=== PATIENT | male | born 1960 | race Caucasian/White ===

== ENCOUNTER 2019-02-09 01:18 | Inpatient (IN) | payer MEDICAID ==
[2019-02-09] VITALS (24 sets, daily range): BP systolic 74–166; BP diastolic 47–104; Ht 182.9 cm; Wt 127.0 kg
[~2019-02-09] VITALS: Ht 182.9 cm; Wt 127.0 kg
--- NOTE | ~2019-02-09 | HEMODYNAMI ---
PATIENT:AIME GALLOWAY MEDICAL RECORD: [id number] : 62 LOCATION:[facility] BaldomeroT01- ADMISSION DATE: 02/09/19 Generatedon:02/09/20193:08 Patient name: AIME AGLLOWAY Patient #: [id number] SSN: : 1960 Date of study: 02/09/2019 Page: Of Hemodynamic Procedure Report Patient Data Patient Demographics Procedure consent was obtained First Name: AIME Gender: Male Last Name: NILESH : 1960 Middle Initial: RAY Age: 58 year(s) Patient #: [id number] Race: Unknown Additional ID: [id number] Contact details Address: [address] [place] [address] State: [place] City: [facility] Zip code: [address] Admission Admission Data Admission Date: 02/09/2019 Admission Time: 1:35 Room #: D.T01 Weight (lbs.): 291.01 Weight (kg.): 132 Procedure Procedure Types Cath Procedure Diagnostic Procedure LHC LH w/Coronaries PCI Procedure AMI/SVG/FILTER FILLER PTCA or Stent AMI-BMS/MARIA A Initial Procedure Description Procedure Date Procedure Date: 02/09/2019 Procedure Start Time: 2:23 Procedure End Time: 3:08 Procedure Staff Name Function Drew Ferguson MD Performing Physician Antwan Ma RT Monitor Saturnino Rios RN Nurse Gene Clement RT Scrub Procedure Data Cath Procedure Fluoroscopy Diagnostic fluoroscopy Total fluoroscopy Time: 9.8 time: 9.8 min min Diagnostic fluoroscopy Total fluoroscopy dose: dose: 2285 mGy 2285 mGy Contrast Material Contrast Material Type Amount (ml) Isovue 300 162 Entry Location Entry Primary Successful Side Size Upsize Upsize Entry Closure Succes sful Closure Location (Fr) 1 (Fr) 2 (Fr) Remarks Device Remarks Femoral Right 6 Fr Exoseal artery Short Estimated blood loss: 10 ml Diagnostic catheters Device Type Used For End Catheter Placement DIAGNOSTIC 3DRC 5Fr Procedure catheter ([id number]) DIAGNOSTIC Pigtail 5Fr Procedure catheter ([id number]) Procedure Complications No complications Procedure Medications Medication Administration Route Dosage 0.9% NaCl I.V. 100 ml/hr Oxygen NC 2 l/min Heparin Flush Bag added to field 2 bags (1000units/500ml NS) Lidocaine 2% 20 Versed I.V. 2 mg Fentanyl I.V. 100 mcg Integrilin (Bolus I.V. 11.3 ml 2mg/ml) Integrilin Drip I.V. drip 20 ml/hr (75mg/100ml) Integrilin (Bolus I.C. 11.3 ml 2mg/ml) Fentanyl I.V. 100 mcg Nitroglycerin IC/IA I.C. 200 mcg Cardene I.C. 300 mcg Integrilin (Bolus wasted 8.7 ml 2mg/ml) Integrilin (Bolus wasted 8.7 ml 2mg/ml) Hemodynamics Rest Heart Rate: 81 (bpm) Pressure Samples Time Site Value (mmHg) Purpose Heart Use Rate(bpm) 2:28 AO 132/83(106) Snapshot 80 2:32 AO 151/101(125) Snapshot 92 2:40 AO 138/93(114) Snapshot 92 2:44 AO 138/87(107) Snapshot 92 2:56 LV 117/18,42 Snapshot 109 2:57 AO 134/77(106) Pullback 96 2:57 LV 117/18,29 Pullback 96 Gradients Valve Time Site 1 Site 2 Mean SEP/DFP Peak To Heart Use (mmHg) (sec/min) Peak Rate (mmHg) (bpm) Aortic 2:57 LV AO 0 2 0 96 117/18,29 134/77(106) Calculations Valve P-P Mean Valve Index Valve Source Name Gradient Area Flow (cm2) Aortic 0 0 0 0 Snapshots Pre Cath Intra NCS Post Cath Vital Signs Time Heart Resp SPO2 etCO2 NIBP (mmHg) Rhythm Pain Status Sedation Rate (ipm) (%) (mmHg) Level (bpm) 2:19:15 87 15 100 0 144/92(117) NSR 10 (11) , 10(A) Unimaginable unspeakable 2:23:29 79 17 98 0 135/85(113) NSR 10 (11) , 10(A) Unimaginable unspeakable 2:27:38 89 13 91 0 155/93(108) NSR 10 (11) , 10(A) Unimaginable unspeakable 2:31:55 77 13 94 0 153/95(128) NSR 10 (11) , 10(A) Unimaginable unspeakable 2:36:13 64 12 99 0 147/93(137) NSR 10 (11) , 10(A) Unimaginable unspeakable 2:40:27 91 13 100 0 137/94(124) NSR 10 (11) , 10(A) Unimaginable unspeakable 2:44:39 94 13 99 0 156/97(129) NSR 10 (11) , 10(A) Unimaginable unspeakable 2:49:01 100 16 99 0 144/67(119) NSR 10 (11) , 10(A) Unimaginable unspeakable 2:53:11 90 11 99 0 134/91(105) NSR 10 (11) , 10(A) Unimaginable unspeakable 2:57:57 99 13 98 0 129/98(126) NSR 10 (11) , 10(A) Unimaginable unspeakable 3:02:05 95 12 91 0 145/95(107) NSR 10 (11) , 10(A) Unimaginable unspeakable 3:06:19 97 14 92 0 161/100(137) NSR 0 (11) , No 10(A) pain Medications Time Medication Route Dose Verified Delivered Reason Notes Eff ectiveness by by 2:18:37 0.9% NaCl I.V. 100 Saturnino Saturnino Per ml/hr Gabriel Rios physician RN RN 2:18:46 Oxygen NC 2 Saturnino Saturnino for low 02 l/min Gabriel Rios sats RN RN 2:18:59 Heparin Flush added 2 Saturnino Saturnino used for Bag to bags Gabriel Rios procedure (1000units/500ml field RN RN NS) 2:19:32 Lidocaine 2% 20ml Saturnino Saturnino for local vial Gabriel Rios anesthetic RN RN 2:22:01 Versed I.V. 2 mg Saturnino Saturnino for sedation Gabriel Rios RN RN 2:22:10 Fentanyl I.V. 100 Saturnino Saturnino for sedation mcg Gabriel Rios RN RN 2:25:07 Integrilin I.V. 11.3 Saturnino Saturnino for (Bolus 2mg/ml) ml Gabriel Rios antiplatelet RN RN therapy 2:26:48 Integrilin wasted 8.7 Saturnino Saturnino to sharp's (Bolus 2mg/ml) ml Gabriel Rios RN RN 2:32:56 Integrilin Drip I.V. 20 Saturnino Saturnino for (75mg/100ml) drip ml/hr Gabriel Rios antiplatelet RN RN therapy 2:36:46 Integrilin I.C. 11.3 Saturnino Drew for (Bolus 2mg/ml) ml Gabriel Ferguson antiplatelet LUCIA MD therapy 2:48:22 Fentanyl I.V. 100 Saturnino Saturnino for sedation mcg Gabriel Rios RN RN 2:50:16 Cardene I.C. 300 Saturnino Drew for mcg [facility] Sifuentes vasodilation RN 2:51:55 Nitroglycerin I.C. 200 Saturnino Drew for IC/IA mcg Gabriel Ferguson vasodilation LUCIA FU 3:03:41 Integrilin wasted 8.7 Saturnino Saturnino to sharp's (Bolus 2mg/ml) ml Gabriel Rios RN spinner cap frame Log Time Note 1:52:09 Patient Weight : 291.01 lbs 1:53:40 Antwan EARL(R) sent for patient. Start room use. 1:53:42 Time tracking: Call back (After hours or weekends) 1:53:47 Plan of Care:Hemodynamics will remain stable., Cardiac rhythm will remain stable., Comfort level will be maintained., Respiratory function will remain adequate., Patient/ family verbilizes understanding of procedure., Procedure tolerated without complication., Recovers from procedure without complications.. 2:12:01 Patient arrives emergently. 2:12:02 Patient received from ED to CCL 1 Alert and oriented. Tansferred to table in Supine position. 2:12:03 Warm blankets applied, and juma hugger turned on for patient comfort. 2:12:04 Correct patient and procedure confirmed by team. 2:12:05 Signed procedure consent form obtained from patient. 2:12:06 ECG and BP/O2 sat monitors applied to patient. 2:12:07 Pre-procedure instructions explained to patient. 2:12:07 Pre-op teaching completed and patient verbalized understanding. 2:12:11 Family in waiting room. 2:18:12 Vital chart was started 2:18:13 Baseline sample Acquired. 2:18:16 Rhythm: w/ ST elevation 2:18:18 Full Disclosure recording started 2:18:37 0.9% NaCl 100 ml/hr I.V. was administered by Saturnino Rios RN; Per physician; 2:18:43 H&P Date Dictated: 02/09/2019 Emergent; H&P N/A. 2:18:46 Oxygen 2 l/min NC was administered by Saturnino Rios RN; for low 02 sats; 2:18:48 Patient NPO since Dinner. 2:18:49 Is the patient allergic to Iodine/contrast media? No. 2:18:51 Is patient on blood thinner?Yes 2:18:53 ACC The patient was administered the following blood thiners within the last 24 hours: ACCPlavix 2:18:59 Heparin Flush Bag (1000units/500ml NS) 2 bags added to field was administered by Saturnino Rios RN; used for procedure; 2:19:00 LOADED IN ER 2:19:02 Patient diabetic? Yes. 2:19:24 If diabetic: On Metformin? Yes 2:19:31 If on Metformin: Last Dose? 02/08/2019 2:19:32 Lidocaine 2% 20ml vial was administered by Saturnino Rios RN; for local anesthetic; 2:19:32 Previous problem with sedation/anesthesia? No ? 2:19:33 Snore? Yes 2:19:34 Sleep apnea? Yes 2:19:35 Deviated septum? No 2:19:36 Opens mouth fully? Yes 2:19:36 Sticks out tongue? Yes 2:19:42 Airway obstruction? Yes COPD 2:19:45 Dentures? No ? 2:19:47 Pre procedure: right dorsailis pedis pulse 1+ Palpable, but thready & weak; easily obliterated 2:19:49 Patient pain scale 0/10 ?. 2:19:56 IV patent on arrival in left hand with 0.9% NaCl at [facility]. 2:19:58 Lab results completed and on chart. 2:20:02 Right groin area was prepped with chlora-prep and draped in sterile fashion 2:20:03 Alarms reviewed by R. N. 2:20:03 Sharps counted by scrub and verified by R.N. 2:20:07 Use device set Femoral Dx 2:20:10 Use device set PROSPER PCI 2:20:23 --------ALL STOP TIME OUT------ 2:20:23 Final Timeout: patient, procedure, and site verified with staff and physician. All members of the team are in agreement. 2:20:25 Right groin site verified by team. 2:20:29 Maximum allowable Isovue 300 dose 300ml. Physician notified. (300ml for normal creatinines. For patients with creatinine of 1.7 or higher multiply weight(kg) x 5 divided by creatinine.) 2:20:34 Fire Safety Assessment: A--An alcohol-based skin anteseptic being used preoperatively., C--Open oxygen or nitrous oxide is being used., D--An ESU, laser, or fiber-optic light is being used. 2:20:37 Physical assessment completed. ASA score P 3 - A patient with severe systemic disease as per Drew Ferguson MD. 2:20:40 Sedation plan: IV Moderate Sedation Medication:Versed, Fentanyl 2:22:01 Versed 2 mg I.V. was administered by Saturnino Rios RN; for sedation; 2:22:10 Fentanyl 100 mcg I.V. was administered by Saturnino Rios RN; for sedation; 2:23:22 Procedure started. 2:23:24 Local anesthetic to right femoral artery with Lidocaine 2% by Drew Ferguson MD.INITIAL ACCESS ONLY 2:23:39 A 6 Fr Short sheath was inserted into the Right Femoral artery 2:23:46 6 Fr JL 4 guide catheter was inserted over the wire 2:23:54 Tegaderm 4 x 4 (1626W) opened to sterile field. 2:23:55 ACIST Manifold (23708) opened to sterile field. 2:23:58 ACIST Hand Control (62187) opened to sterile field. 2:23:59 ACIST Syringe (16622) opened to sterile field. 2:24:00 Bag Decanter () opened to sterile field. 2:24:00 Medline Cath Pack ([id number]) opened to sterile field. 2:24:01 DIAGNOSTIC WIRE .035 260cm J wire (755195) opened to sterile field. 2:24:04 INFLATOR Merit ScoutmobCompak (RK6895) opened to sterile field. 2:24:05 WHISPER 300cm guide wire ([id number]) opened to sterile field. 2:24:07 SHEATH 6FR [place] (XUB536) opened to sterile field. 2:24:23 GUIDE 6FR JL 4.0 catheter (BO0CQ71) opened to sterile field. 2:24:33 LCA angiography performed. 2:24:54 Whisper wire advanced. 2:25:07 Integrilin (Bolus 2mg/ml) 11.3 ml I.V. was administered by Saturnino Rios RN; for antiplatelet therapy; 2:26:48 Integrilin (Bolus 2mg/ml) 8.7 ml wasted was administered by Saturnino Rios RN; to sharp's; 2:27:02 Wire advanced across lesion. 2:27:27 Inflate balloon Inflation number: 1 A EMERGE OTW 3.0 x 15 balloon ([id number]) was prepped and advanced across the Mid LAD, then inflated to 14 MAU for 0:30 (min:sec). 2:28:23 Inflation number: 2 The EMERGE OTW 3.0 x 15 balloon ([id number]) was reinflated across the Mid LAD, to 6 MAU for 0:10 (min:sec). 2:29:02 Multiple inflations made at 6 Atms. 2:29:36 Inflation number: 3 The EMERGE OTW 3.0 x 15 balloon ([id number]) was reinflated across the Mid LAD, to 8 MAU for 0:10 (min:sec). 2:29:40 Multiple inflations made at 8 Atms. 2:32:51 Balloon removed over the wire. 2:32:56 Integrilin Drip (75mg/100ml) 20 ml/hr I.V. drip was administered by Saturnino Rios RN; for antiplatelet therapy; 2:33:06 Place stent Inflation Number: 4 A INTEGRITY OTW 3.5 X 12 stent ([id number]) was prepped and advanced across the Mid LAD. The stent was deployed at 14 MAU for 0:30 (min:sec). 2:36:13 Stent catheter was removed intact over wire. 2:36:14 Wire removed. 2:36:34 WHISPER 300cm guide wire ([id number]) opened to sterile field. 2:36:46 Integrilin (Bolus 2mg/ml) 11.3 ml I.C. was administered by Drew Ferguson MD; for antiplatelet therapy; 2:36:50 Wire removed, damaged. 2:37:01 New Whisper wire advanced. 2:40:02 Wire advanced across lesion. 2:40:51 Inflate balloon Inflation number: 5 A EMERGE OTW 3.0 x 20 balloon ([id number]) was prepped and advanced across the Mid LAD, then inflated to 12 MAU for 0:30 (min:sec). 2:41:12 Multiple inflations made at 12 Atms. 2:44:44 Balloon removed over the wire. 2:48:22 Fentanyl 100 mcg I.V. was administered by Saturnino Rios RN; for sedation; 2:49:11 Place stent Inflation Number: 6 A INTEGRITY OTW 3.0 X 30 stent ([id number]) was prepped and advanced across the Mid LAD. The stent was deployed at 14 MAU for 0:30 (min:sec). 2:50:16 Cardene 300 mcg I.C. was administered by Drew Ferguson MD; for vasodilation; 2:51:55 Nitroglycerin IC/IA 200 mcg I.C. was administered by Drew Ferguson MD; for vasodilation; 2:54:50 Stent catheter was removed intact over wire. 2:54:51 Wire removed. 2:54:52 Guide catheter removed. 2:55:23 A DIAGNOSTIC 3DRC 5Fr catheter ([id number]) was advanced over the wire and used for Procedure. 2:55:29 RCA angiography performed. 2:55:32 Catheter removed. 2:55:38 A DIAGNOSTIC Pigtail 5Fr catheter ([id number]) was advanced over the wire and used for Procedure. 2:55:48 LV angiography performed. 2:55:50 LV gram done using ORELLANA 2:57:06 EF : 50 % 2:57:07 LV hemodynamics recorded. 2:57:11 Injector settings: Ml/sec: 10, Volume: 20, 2:57:21 Catheter removed. 2:57:24 EXOSEAL 6Fr (EX600) opened to sterile field. 2:57:35 Sheath removed intact; hemostasis achieved with Exoseal to the Right Femoral artery. 2:57:37 Procedure ended.(Physican Out) 2:57:51 Fluoroscopy time 09.80 minutes. 2:57:56 Fluoroscopy dose: 2285 mGy 2:57:56 Flurop Dose total: 2285 2:57:59 Contrast amount:Isovue 300 162ml. 2:58:01 Sharps counted by scrub and verified by R.N. 2:58:02 Insertion/operative site no bleeding no hematoma. 2:58:05 Post-op/insertion site Right Femoral artery dressed using a 4 x 4 and Tegaderm. 2:58:06 Post Procedure Pulses reassessed and unchanged 2:58:40 Post-procedure physical assessment completed. ASA score P 2 - A patient with mild systemic disease as per Drew Ferguson MD. 2:58:47 Post procedure rhythm: sinus rhythm 2:58:51 Estimated blood loss: 10 ml 2:58:52 Post procedure instruction explained to patient.Patient verbalizes understanding. 2:58:53 Patient needs reinforcement of post procedure teaching. 2:59:02 Procedure and supply charges have been captured, reviewed, submitted and are correct. 2:59:08 Procedure Complication : No complications 3:03:41 Integrilin (Bolus 2mg/ml) 8.7 ml wasted was administered by Saturnino Rios RN; to sharp's; 3:07:56 Vital chart was stopped 3:07:57 See physician's report for complete and final results. 3:07:59 Report given to CVICU. 3:08:02 Patient transfered to CVICU with Bed. 3:08:07 Procedure ended. 3:08:07 Full Disclosure recording stopped 3:08:11 End room use (Document Last) Intervention Summary Intervention Notes Time ActionType Lesion and Equipment Action# Pressure Duration Attributes Used 2:27:27 Inflate Mid LAD EMERGE OTW 1 14 00:30 balloon 3.0 x 15 balloon ([id number]) 2:28:23 Reinflate Mid LAD EMERGE OTW 2 6 00:10 balloon 3.0 x 15 balloon ([id number]) 2:29:36 Reinflate Mid LAD EMERGE OTW 3 8 00:10 balloon 3.0 x 15 balloon ([id number]) 2:33:06 Place stent Mid LAD INTEGRITY 4 14 00:30 OTW 3.5 X 12 stent ([id number]) 2:40:51 Inflate Mid LAD EMERGE OTW 5 12 00:30 balloon 3.0 x 20 balloon ([id number]) 2:49:11 Place stent Mid LAD INTEGRITY 6 14 00:30 OTW 3.0 X 30 stent ([id number]) Device Usage Item Name Manufacture Quantity Catalog Number Hospital Part Current Min imal Lot# / Charge Number Stock Stock Serial# Code Tegaderm 4 x 3M 1 1626W 230003 951808 138724 5 4 (1626W) ACIST Acist 1 76914 695254 217032 433404 5 Manifold Medical (22262) Systems Inc ACIST Hand Acist 1 66613 507669 761626 007739 5 Control Medical (21261) Systems Inc ACIST Acist 1 58119 085012 060171 660426 20 Syringe Medical (38348) Systems Inc Bag Decanter Microtek 1 2001S 920227 46944 699781 5 (2001S) Medical Inc. Medline Cath Medline 1 [id number] 433941 42908 576859 5 Pack ([id number]) DIAGNOSTIC [place] 1 370741 075654 229880 866488 30 WIRE .035 260cm J wire (181617) INFLATOR Legal Egg 1 QC9477 362195 972486 922750 15 Legal Egg Medical BasixCompak (NU3778) WHISPER [place] 2 [id number] 801756 991619 785822 5 300cm guide Vascular wire (8474312GK) SHEATH 6FR Terumo 1 YNJ637 059935 987473 251218 40 [place] (DMX576) GUIDE 6FR JL Medtronic 1 EO5BG15 039806 23360 609872 1 4.0 catheter (EP7IX61) EMERGE OTW [place] 1 [id number] 582371 669878 969133 5 [id number] 3.0 x 15 Scientific balloon ([id number]) INTEGRITY Medtronic 1 [id number] 950697 575130 686951 3 [id number] OTW 3.5 X 12 stent ([id number]) EMERGE OTW [place] 1 [id number] 296367 267544 337603 5 02272347 3.0 x 20 Scientific balloon ([id number]) INTEGRITY Medtronic 1 [id number] 079551 181734 074032 5 [id number] OTW 3.0 X 30 stent ([id number]) DIAGNOSTIC Cardinal 1 660143A 477031 871422 424828 9 3DRC 5Fr Health catheter (543026U) DIAGNOSTIC Cardinal 1 485543L 344623 954775 473456 5 Pigtail 5Fr Health catheter (229342T) EXOSEAL 6Fr Cardinal 1 EX600 662286 108888 579660 10 (EX600) Health Signature Audit [place] Stage Time Signature Unsigned Intra-Procedure 02/09/2019 Antwan Ma 3:08:42 AM RT(R) Signatures Monitor : Antwan Ma RT Signature : Date : Time : [address] [address]
[2019-02-09] MEDS ORDERED: GLUCOTROL XL 5 M5 MG PO (01:23)
[2019-02-09] MEDS ORDERED: GLUCOPHAGE500 MG PO (01:23)
[2019-02-09] MEDS ORDERED: LISINOPRIL10 MG (01:23)
[2019-02-09] MEDS ORDERED: NEURONTIN 300300 MG PO (01:28)
[2019-02-09 01:36] LABS: BASOPHILS 0.4 % (0-2); EOSINOPHILS 1.6 % (0-7); HEMATOCRIT 44.9 % (42.0-54.0); HEMOGLOBIN 15.6 g/dL (13.5-17.5); IMMATURE GRANULOCYTES 0.5 % (0-5); LYMPHOCYTES 19.4 % (15-50); MCH 29.3 pg (26.0-34.0); MCHC 34.7 g/dL (31.0-37.0); MCV 84.2 fL (80.0-100.0); MEAN PLATELET VOLUME 10.3 fL (7.4-10.4); MONOCYTES 6.4 % (2-11); NEUTROPHILS 71.7 % (40-80); PLATELET COUNT 214 10x3/uL (130-400); RBC 5.33 10x6/uL (4.20-6.10); RDW 13.3 % (11.5-14.5); WBC 15.2 10x3/uL (4.8-10.8)
[2019-02-09 01:46] LABS: INR 1.07 (0.85-1.17); PROTIME 13.4 SECONDS (11.6-15.0)
[2019-02-09 01:59] LABS: ALBUMIN 3.7 g/dL (3.4-5.0); ALKALINE PHOSPHATASE 81 U/L (46-116); ALT (SGPT) 22 U/L (10-68); APTT 25.1 SECONDS (22.8-39.4); BILIRUBIN - TOTAL 0.31 mg/dL (0.2-1.3); CALC OSMOLALITY 279 mosm/kg (275-300); CALCIUM 8.4 mg/dL (8.5-10.1); CARBON DIOXIDE 28.5 mmol/L (21.0-32.0); CHLORIDE - SERUM 98 mmol/L (98-107); CREATININE - SERUM 2.2 mg/dL (0.6-1.3); GLUCOSE 186 mg/dL (74-106); POTASSIUM - SERUM 4.5 mmol/L (3.5-5.1); PROTEIN - SERUM 7.6 g/dL (6.4-8.2); SODIUM 136 mmol/L (136-145); UREA NITROGEN 21 mg/dL (7-18); eGFR NON AFRICAN AMERICAN 33 mL/min (90-120)
[2019-02-09 02:14] LABS: CKMB 1.3 U/L (0.0-3.6); CREATINE KINASE 62 UL (21-232); MAGNESIUM - SERUM 2.1 mg/dL (1.8-2.4); TROPONIN-I 0.018 ng/mL (0.000-0.060)
[2019-02-09 05:47] LABS: ANION GAP 10.8 mmol/L (8-16); CALCIUM 8.2 mg/dL (8.5-10.1); CARBON DIOXIDE 29.2 mmol/L (21.0-32.0); CREATININE - SERUM 1.7 mg/dL (0.6-1.3)
[2019-02-09 08:20] LABS: CHOL - HDL RATIO 6.7 ratio (2.3-4.9); LDL-HDL RATIO 4.6 ratio (1.5-3.5)
--- NOTE | 2019-02-09 11:56 | OP ---
PATIENT NAME: AIME GALLOWAY MEDICAL RECORD: [id number] :62 LOCATION:[facility] D.CV04 ADMISSION DATE:02/09/19 SURGEON: HERON CHENG MD DATE OF OPERATION: 02/09/2019 PROCEDURES: Left heart catheterization, selective coronary angiography, right femoral artery approach. CATHETERS: A 6-Iranian sheath, JL4 guiding catheter, pigtail catheter. The procedure was well tolerated. The patient returned to [facility]. Sheath was removed. ExoSeal device placed. FINDINGS: Left ventriculography in 30-degree ORELLANA view shows anterior apical hypokinesis. Overall, function appears to be lower limits of normal, mildly reduced 45% to 50%. CORONARY ANATOMY: LEFT MAIN: Left main is free of disease. LAD: Fills to just past the first diagonal that is totally occluded. CIRCUMFLEX: There is a large circumflex, ramus intermedius system, that is large, reaching the apex, widely patent without evidence of significant stenosis. RIGHT CORONARY ARTERY: Rudimentary with no significant disease. PLAN: Intervention LAD momentarily. DESCRIPTION OF PROCEDURE: Using indwelling 6-Iranian sheath, a JL4 guiding catheter provided good guide catheter support. We easily placed the wire down across a totally occluded LAD down this portion of vessel. A balloon was then placed easily down past the total occlusion up and down and multiple inflations made up and down the LAD itself. This showed JOSH flow is still 0-1. We then injected contrast through the balloon catheter itself surely were in fact in true lumen. Next, stents placed were a 3.5 x 15 and distally a long 3.0 x 30 nondrug-eluting stent up to 14 atmospheres. Again, no wasting. The patient received IC Integrilin, IC Cardene, IC Nitro. More consistent with a small vasculature, no refill phenomena. Left on Integrilin drip to hopefully increase microvascular circulation. TRANSINT:[id number] Voice Confirmation ID: [id number] DOCUMENT ID: [id number] HERON CHENG MD at 1156 CC: [id number] DICTATION DATE: 02/09/19314 PRIVATE DUTY RN: 02/09/19 0807 ADM IN [address] [id number] [place] [address]
--- NOTE | 2019-02-09 11:56 | HP ---
PATIENT: AIME GALLOWAY MEDICAL RECORD: [id number] ACCOUNT: [id number] LOCATION:[facility]04 : 62 ADMISSION DATE: 02/09/19 PCP: HAYLEY ARIAS MD HISTORY AND PHYSICAL EXAMINATION HISTORY OF PRESENT ILLNESS: A 58-year-old diabetic with a history of diabetes, hypertension, smoking, woke up from sleep with chest pain, pressure, tightness radiating to the jaws. No nausea. Some dyspnea, found to have anterior TX, brought to the laboratory secretary on an emergent basis. PAST MEDICAL HISTORY: Includes, 1. Diabetes mellitus. 2. Hypertension. MEDICATIONS: Include, lisinopril 10 mg p.o. daily, Neurontin 100 mg p.o. daily, albuterol 5 daily, and metformin 1 gram b.i.d. ALLERGIES: None known. SOCIAL HISTORY: Does smoke. Social drinker. Occasional marijuana use. PHYSICAL EXAMINATION: GENERAL: Middle-aged gentleman in mild distress. VITAL SIGNS: 96/54, pulse 87 and regular. HEENT: Normocephalic, atraumatic. HEART: Tones distant. LUNGS: Good air excursion. ABDOMEN: Soft, nontender. EXTREMITIES: Pulses 2+. No edema. IMPRESSION: Acute anterior myocardial infarction. PLAN: Urgent catheterization and revascularization as indicated. TRANSINT:[id number] Voice Confirmation ID: [id number] DOCUMENT ID: [id number] HERON CHENG MD at 1156 CC: [id number] DICTATION DATE: 02/09/19218 FISCAL TECHNICIAN: 02/09/19 0408 [place] [address]
[2019-02-10 03:50] VITALS: BP 102/63
[2019-02-10 06:40] LABS: BASOPHILS 0.4 % (0-2); EOSINOPHILS 2.5 % (0-7); HEMOGLOBIN 14.4 g/dL (13.5-17.5); IMMATURE GRANULOCYTES 0.4 % (0-5); LYMPHOCYTES 20.3 % (15-50); MCHC 34.3 g/dL (31.0-37.0); MCV 84.5 fL (80.0-100.0); MEAN PLATELET VOLUME 10.6 fL (7.4-10.4); MONOCYTES 10.4 % (2-11); PLATELET COUNT 183 10x3/uL (130-400); RBC 4.97 10x6/uL (4.20-6.10); RDW 13.3 % (11.5-14.5); WBC 13.9 10x3/uL (4.8-10.8)
[2019-02-10 07:24] LABS: ANION GAP 8.2 mmol/L (8-16); CALCIUM 8.4 mg/dL (8.5-10.1); CARBON DIOXIDE 32.4 mmol/L (21.0-32.0); POTASSIUM - SERUM 4.6 mmol/L (3.5-5.1)
[2019-02-10 07:25] LABS: CREATININE - SERUM 1.1 mg/dL (0.6-1.3)
[2019-02-10 10:04] VITALS: BP 108/65
[2019-02-10 12:19] LABS: APPEARANCE CLEAR (CLEAR); BILIRUBIN NEGATIVE (NEGATIVE); COLOR DK YELLOW (YELLOW); GLUCOSE NEGATIVE (NEGATIVE); KETONE NEGATIVE (NEGATIVE); NITRITE NEGATIVE (NEGATIVE); PROTEIN NEGATIVE (NEGATIVE); SPECIFIC GRAVITY 1.025 (1.005-1.020); UROBILINOGEN NORMAL (NORMAL); WHITE CELLS - URINE OCC /hpf (0-5)
[2019-02-10 12:20] LABS: BACTERIA MODERATE /hpf (NONE SEEN); EPITHELIAL CELLS 0-5 /hpf (0-5); HYALINE CAST 0-5 /lpf (NONE SEEN); MUCUS >1+ /lpf (NONE SEEN); RED CELLS - URINE 0-5 /hpf (0-5); WAXY CAST 0-5 /lpf (NONE SEEN)
[2019-02-10 16:47] VITALS: BP 110/78
[2019-02-11 00:30] VITALS: BP 115/65
[2019-02-11 04:00] VITALS: BP 102/62
[2019-02-11 07:47] LABS: BASOPHILS 0.4 % (0-2); EOSINOPHILS 1.4 % (0-7); HEMATOCRIT 42.5 % (42.0-54.0); HEMOGLOBIN 14.6 g/dL (13.5-17.5); IMMATURE GRANULOCYTES 0.5 % (0-5); MCH 28.8 pg (26.0-34.0); MCHC 34.4 g/dL (31.0-37.0); MCV 83.8 fL (80.0-100.0); MEAN PLATELET VOLUME 10.5 fL (7.4-10.4); MONOCYTES 11.8 % (2-11); NEUTROPHILS 68.9 % (40-80); PLATELET COUNT 181 10x3/uL (130-400); RBC 5.07 10x6/uL (4.20-6.10); RDW 13.2 % (11.5-14.5); WBC 14.2 10x3/uL (4.8-10.8)
[2019-02-11 08:06] LABS: CALC OSMOLALITY 276 mosm/kg (275-300); CALCIUM 8.4 mg/dL (8.5-10.1); CARBON DIOXIDE 28.2 mmol/L (21.0-32.0); CHLORIDE - SERUM 99 mmol/L (98-107); CREATININE - SERUM 0.9 mg/dL (0.6-1.3); GLUCOSE 159 mg/dL (74-106); POTASSIUM - SERUM 4.4 mmol/L (3.5-5.1); SODIUM 136 mmol/L (136-145); UREA NITROGEN 18 mg/dL (7-18); eGFR NON AFRICAN AMERICAN > 90 mL/min (90-120)
[2019-02-11 09:45] VITALS: BP 124/72
--- NOTE | 2019-02-11 11:58 | MORECARE ---
CASE MANAGEMENT DISCHARGE SUMMARY PATIENT: AIME GALLOWAY UNIT: [id number] ADM DATE: 02/09/19 AGE: 58 : 62 SEX: M ROOM/BED: D.0078 AUTHOR: ADDIE,DOC PHYSICIAN: REFERRING PHYSICIAN: MINDY SEGUNDO MD DATE OF SERVICE: 02/11/19 Discharge Plan Patient Name: AIME GALLOWAY Facility: [facility]:[place] : 1960 Planned Disposition: Home Anticipated Discharge Date: 02/11/19 Discharge Date: Expected LOS: 2 Initial Reviewer: [email or web address] Initial Review Date: 02/11/2019 Generated: 02/11/19 12:58 pm Comments DCP- Discharge Planning Updated by [email or web address]: Leo Mann on 02/11/19 10:[address] Patient Name: AIME GALLOWAY Admission Status: ER Accout number: [id number] Admission Date: 02-09-2019 : 1960 Admission Diagnosis: Attending: MINDY SEGUNDO Current LOS: 2 Anticipated DC Date: 02-11-2019 Planned Disposition: Home Primary [place]: [place] [employer] AN[place] Discharge Planning Comments: CM MET WITH PT AND FRIEND IN ROOM TO DISCUSS DISCHARGE PLANNING AND NEEDS. AIME GALLOWAY provided verbal consent to discuss current and ongoing needs with/in the presence of: FRIEND, LENNY YOUNG. PT REPORTS LIVING AT HOME INDEPENDENTLY AND ALONE. PT HAS CPAP AND REPORTS IT IS MORE A " VPAP" FROM [place] [facility] PATIENT. PT HAS NO OUTSIDE SERVICES ASSISTING IN THE HOME. CM DISCUSSED AVAILABILITY OF HOME HEALTH, REHAB SERVICES AND MEDICAL EQUIPMENT. PT DENIES DISCHARGE NEEDS, REPORTS ONE OF HIS FRIENDS WILL PICK HIM UP FOR DISCHARGE HOME. Home Care Associate: Leo Mann DCPIA - Discharge Planning Initial Assessment Updated by [email or web address]: Leo Mann on 02/11/19 11:52 am * Is the patient Alert and Oriented? Yes * How many steps to enter\\exit or inside your home? * PCP DR. SCOTTY BIRCH, [facility] [place] * Pharmacy [facility] * Preadmission Environment Home Alone * ADLs Independent * Equipment CPAP * Other Equipment [place] [facility] PATIENT - MEDICAL EQUIPMENT PROVIDER * List name and contact numbers for known caregivers / representatives who currently or will assist patient after discharge: TAIRQ ROJAS, FRIEND, LENNY YOUNG, FRIEND, * Verbal permission to speak to the caregivers and representatives has been obtained from the patient. Yes * Community resources currently utilized None * Please name any agencies selected above. NONE * Additional services required to return to the preadmission environment? No * Can the patient safely return to the preadmission environment? Yes * Has this patient been hospitalized within the prior 30 days at any hospital? No Patient Name: AIME GALLOWAY Page 15756 at 1158 All edits/amendments must be made on the electronic document DICTATION DATE: 02/11/191157 CIVIL LITIGATION ATTORNEY: ABDI 02/11/19 115 RPT#: [id number] DC DATE: STATUS: ADM IN [facility] [address] [place] [address] END OF REPORT
[2019-02-11] MEDS ORDERED: LIPITOR20 MG PO (13:24)
[2019-02-11] MEDS ORDERED: LEVAQUIN750 MG PO (13:24)
[2019-02-11] MEDS ORDERED: PLAVIX75 MG PO (13:24)
[2019-02-11] MEDS ORDERED: ISOSORBIDE MONO30 M1 PO (13:24)
[2019-02-11] MEDS ORDERED: ASPIRIN325 MG PO (13:25)
[2019-02-11] MEDS ORDERED: METOPROLOL TART50 MG PO (13:25)
--- NOTE | 2019-02-11 14:38 | MORECARE ---
CASE MANAGEMENT DISCHARGE SUMMARY PATIENT: AIME GALLOWAY UNIT: [id number] ADM DATE: 02/09/19 AGE: 58 : 62 SEX: M ROOM/BED: D.3198 AUTHOR: ADDIE,DOC PHYSICIAN: REFERRING PHYSICIAN: MINDY SEGUNDO MD DATE OF SERVICE: 02/11/19 Discharge Plan Patient Name: AIME GALLOWAY Facility: [facility]:[place] : 1960 Planned Disposition: Home Anticipated Discharge Date: 02/11/19 Discharge Date: Expected LOS: 2 Initial Reviewer: [email or web address] Initial Review Date: 02/11/2019 Generated: 02/11/19 3:37 pm Comments DCP- Discharge Planning Updated by [email or web address]: Leo Mann on 02/11/19 10:[address] Patient Name: AIME GALLOWAY Admission Status: ER Accout number: [id number] Admission Date: 02-09-2019 : 1960 Admission Diagnosis: Attending: MINDY SEGUNDO Current LOS: 2 Anticipated DC Date: 02-11-2019 Planned Disposition: Home Primary [place]: [place] [employer] Discharge Planning Comments: CM MET WITH PT AND FRIEND IN ROOM TO DISCUSS DISCHARGE PLANNING AND NEEDS. AIME GALLOWAY provided verbal consent to discuss current and ongoing needs with/in the presence of: FRIEND, LENNY YOUNG. PT REPORTS LIVING AT HOME INDEPENDENTLY AND ALONE. PT HAS CPAP AND REPORTS IT IS MORE A " VPAP" FROM [facility]. PT HAS NO OUTSIDE SERVICES ASSISTING IN THE HOME. CM DISCUSSED AVAILABILITY OF HOME HEALTH, REHAB SERVICES AND MEDICAL EQUIPMENT. PT DENIES DISCHARGE NEEDS, REPORTS ONE OF HIS FRIENDS WILL PICK HIM UP FOR DISCHARGE HOME. Passenger Coach Driver: Leo Mann DCPIA - Discharge Planning Initial Assessment Updated by [email or web address]: Leo Mann on 02/11/19 11:52 am * Is the patient Alert and Oriented? Yes * How many steps to enter\\exit or inside your home? * PCP DR. SCOTTY BIRCH, [employer] [facility] [employer] [place] * Pharmacy [facility] * Preadmission Environment Home Alone * ADLs Independent * Equipment CPAP * Other Equipment [facility] - MEDICAL EQUIPMENT PROVIDER * List name and contact numbers for known caregivers / representatives who currently or will assist patient after discharge: TARIQ ROJAS, FRIEND, LENNY YOUNG, FRIEND, * Verbal permission to speak to the caregivers and representatives has been obtained from the patient. Yes * Community resources currently utilized None * Please name any agencies selected above. NONE * Additional services required to return to the preadmission environment? No * Can the patient safely return to the preadmission environment? Yes * Has this patient been hospitalized within the prior 30 days at any hospital? No Last DP export: 02/11/19 10:58 a Patient Name: AIME GALLOWAY Page [id number] at 1438 All edits/amendments must be made on the electronic document DICTATION DATE: 02/11/191436 CANDY FORMING MACHINE OPERATOR: ABDI 02/11/191436 RPT#: [id number] DC DATE: STATUS: ADM IN [facility] [address] [place] [address] END OF REPORT
== END 2019-02-11 15:24 | disposition home or self-care (01) | DRG 249 ==
LOC: D.ER 01:18 → D.EDHOLD 01:35 → D.CVICU 01:35 → OBSVTIME 01:35 → D.CVICU 03:20 → D.M2 13:50
PROVIDERS: Emergency Medicine; Internal Medicine Interventional Cardiology; ADMIT Internal Medicine Nephrology; ATTEND Internal Medicine Nephrology
PROC: B2111ZZ Fluoroscopy of Multiple Coronary Arteries using Low Osmolar Contrast (ICD-10-PCS; 2019-02-09)
PROC: B2151ZZ Fluoroscopy of Left Heart using Low Osmolar Contrast (ICD-10-PCS; 2019-02-09)
PROC: 02703EZ Dilation of Coronary Artery, One Artery with Two Intraluminal Devices, Percutaneous Approach (ICD-10-PCS; principal; 2019-02-09 01:53)
PROC: 4A023N7 Measurement of Cardiac Sampling and Pressure, Left Heart, Percutaneous Approach (ICD-10-PCS; 2019-02-09 01:53)
DX: I21.09 ST elevation (STEMI) myocardial infarction involving other coronary artery of anterior wall (principal); N17.9 Acute kidney failure, unspecified; F17.213 Nicotine dependence, cigarettes, with withdrawal; E87.1 Hypo-osmolality and hyponatremia; E11.22 Type 2 diabetes mellitus with diabetic chronic kidney disease; I12.9 Hypertensive chronic kidney disease with stage 1 through stage 4 chronic kidney disease, or unspecified chronic kidney disease; N18.3 Chronic kidney disease, stage 3 (moderate); I25.10 Atherosclerotic heart disease of native coronary artery without angina pectoris; I95.9 Hypotension, unspecified; J44.9 Chronic obstructive pulmonary disease, unspecified

== ENCOUNTER → 2019-08-21 10:58 | Outpatient (CLI) | payer MEDICAID ==
[2019-02-09 12:30] VITALS: BMI 37.9
[~2019-08-21 10:58] MED LIST: ASPIRIN325 MG PO; GLUCOPHAGE500 MG PO; GLUCOTROL XL 5 M5 MG PO; ISOSORBIDE MONO30 M1 PO; LEVAQUIN750 MG PO; LIPITOR20 MG PO; LISINOPRIL10 MG; METOPROLOL TART50 MG PO; NEURONTIN 300300 MG PO; PLAVIX75 MG PO
--- NOTE | 2019-08-23 09:56 | EC ---
PATIENT:AIME GALLOWAY DATE OF SERVICE: 08/21/19 SEX: M MEDICAL RECORD: [id number] DATE OF : 62 LOCATION:[facility] AGE OF PATIENT: 58 ADMISSION DATE: 08/21/19 REFERRING PHYSICIAN: INTERPRETING PHYSICIAN: HERON CHENG MD ECHOCARDIOGRAM REPORT ECHO CHARGES 4 ECHO COMPLETE Date: 08/21/19 CLINICAL DIAGNOSIS: H/O CAD/NC/HTN ECHOCARDIOGRAPHIC MEASUREMENTS (adult normal given) AC root (d.<3.7cm) 3.6 cm LV Septum d (<1.2 cm> 1.5 cm Valve Excursion 2.0 cm LV Septum (systole) 2.2 cm Left Atria (s.<4.0cm> 4.8 cm LVPW d(<1.2cm) 1.4 cm RV (d.<2.3cm) 2.7 cm LVPW (sytole) 2.2 cm LV diastole(<5.6CM) 5.5 cm MV E-F(>70mm/sec) cm LV systole 2.6 cm LVOT Diameter 2.1 cm MV exc.(>10mm) cm Est.ejection fraction (50-75%) % DOPPLER: LVIT cm/sec A 73.0 cm/sec E 110 cm/sec LA cm/sec RVSP 21.0 mmHg LVOT 135 cm/sec AOP1/2T m/s Asc. Ao 135 cm/sec RVOT 66.0 cm/sec RA cm/sec PA 95.0 cm/sec AV Gradient Peak 7.2 mmHg AV Mean 4.1 mmHg AV Area 3.1 cm MV Gradient Peak 4.6 mmHg MV Mean 2.3 mmHg MV Area cm COMMENTS: OP - HC Tanning Drum Operator: Cora MAEOE Political Research Scientist: 3 Dr. Alejandra TAPE# PACS Pericardial Effusion N DATE OF SERVICE: 08/21/2019 Adequate 2D, color flow imaging, spectral Doppler, and M-Mode LVH is present. LV internal dimension is normal. LV appears to be lower limits of normal, mildly reduced. Estimated EF 45% to 50%. Aortic valve is tricuspid. No evidence of stenosis by Doppler interrogation. Left atrium is dilated at 4.8 cm. Mitral valve shows no prolapse. Trace MR. Right-sided chambers as well as normal. Trace TR. ECHOCARDIOGRAM REPORT [id number] AIME GALLOWAY TRANSINT:[id number] Voice Confirmation ID: [id number] DOCUMENT ID: [id number] HERON CHENG MD at 0956 CC: [id number] DICTATION DATE: 08/22/1958 [employer] SUPERVISOR: 08/22/19 1140 DEP CLI 08/21/19 [facility] [address] [place] [id number]
== END | disposition home or self-care (01) ==
LOC: D.HCCECHO 10:58 → D.HCCARDIO 11:00 → D.HCCECHO 11:00
PROVIDERS: ATTEND Internal Medicine Interventional Cardiology
DX: I25.10 Atherosclerotic heart disease of native coronary artery without angina pectoris (principal)

== ENCOUNTER 2020-08-29 12:01 | Day surgery (SDC) | payer MEDICAID ==
[~2020-08-29] VITALS: Ht 182.9 cm; Wt 142.3 kg
[~2020-08-29 12:01] MED LIST changes: +HYDROCODON-ACE1 EA10 PO; +ISOSORBIDE MONO60 M1 PO; +MERIBIN5 MG PO; +VITAMIN E600 UNIT PO
[2020-08-29 12:28] LABS: HEMATOCRIT 42.7 % (42.0-54.0); HEMOGLOBIN 14.4 g/dL (13.5-17.5); MCH 27.4 pg (26.0-34.0); MCHC 33.7 g/dL (31.0-37.0); MCV 81.3 fL (80.0-100.0); MEAN PLATELET VOLUME 10.2 fL (7.4-10.4); RBC 5.25 10x6/uL (4.20-6.10); RDW 14.1 % (11.5-14.5); WBC 11.5 10x3/uL (4.8-10.8)
[2020-08-29 12:39] LABS: APTT 27.7 SECONDS (22.8-39.4); INR 1.07 (0.85-1.17); PROTIME 13.8 SECONDS (11.6-15.0)
[2020-08-29] MEDS ORDERED: ASPIRIN EC81 MG PO (12:40)
[2020-08-29 12:41] LABS: CALC OSMOLALITY 278 mosm/kg (275-300); CALCIUM 8.6 mg/dL (8.5-10.1); CARBON DIOXIDE 26.9 mmol/L (21.0-32.0); CHLORIDE - SERUM 101 mmol/L (98-107); GLUCOSE 176 mg/dL (74-106); POTASSIUM - SERUM 4.2 mmol/L (3.5-5.1); SODIUM 137 mmol/L (136-145); UREA NITROGEN 14 mg/dL (7-18); eGFR NON AFRICAN AMERICAN 81 mL/min (90-120)
[2020-08-29] MEDS ORDERED: GLUCOPHAGE1000 MG PO (12:43)
[2020-08-29] MEDS ORDERED: GLIPIZIDE10 MG PO (12:44)
[2020-08-29] MEDS ORDERED: SUPER B COMPLE1 EAC1 PO (12:45)
[2020-08-29 13:00] VITALS: BP 121/71; Ht 182.9 cm; Wt 142.3 kg
--- NOTE | 2020-08-29 14:27 | NUR ---
1425 DR. EBER BOLIVAR, APPLE JUICE SERVED.
--- NOTE | 2020-08-31 10:13 | OP ---
PATIENT NAME: AIME GALLOWAY MEDICAL RECORD: [id number] :62 [facility] DATE: SURGEON: RUSTY VELÁZQUEZ DO DATE OF OPERATION: 08/29/2020 PROCEDURE: Colonoscopy with polypectomy. INDICATIONS FOR PROCEDURE: Screening colonoscopy, history of colon polyps, family history of colon cancer in the patient's father. SCOPE: Olympus video pediatric colonoscope. MEDICATIONS: Propofol 550 mg IV per anesthesia. WITHDRAWAL TIME: 12 minutes. ESTIMATED BLOOD LOSS: Minimal. COMPLICATIONS: None. FINDINGS: Informed consent was given. The patient was made comfortable with the above medication. After reaching an adequate level of sedation by slow IV push, the patient was placed on his left side. A digital rectal examination was performed and was normal. The endoscope was then advanced under direct visualization through the rectum to the cecum, confirmed by the presence of the appendiceal orifice and ileocecal valve. The endoscope was slowly withdrawn and mucosa was carefully examined. The prep quality was good. There was evidence of mild diverticulosis involving the descending and sigmoid colon. Upon retroflexion, there was evidence of grade I internal hemorrhoids without bleeding. There were 8 polyps total visualized on today's examination. Three were located in the ascending colon. They were benign-appearing and sessile and ranged in size from 3 to 7 mm in diameter. They were all removed using hot snare. In the transverse colon, there were two separate benign-appearing sessile polyps, which ranged in size from 4-5 mm in diameter. They were both removed using a hot snare. In the descending colon, there was a single benign-appearing sessile polyp, which measured approximately 4 mm in diameter. It was removed using hot snare. In the rectum, there were two separate benign-appearing sessile polyps, which ranged in size from 3-4 mm in diameter. They were both removed using a hot snare. The endoscope was withdrawn from the patient. The patient tolerated the procedure well and there were no complications. IMPRESSION: 1. Multiple polyps as described above, removed using hot snare. 2. Mild diverticulosis of the descending colon and sigmoid colon. 3. Grade I internal hemorrhoids without bleeding. PLAN AND RECOMMENDATIONS: 1. Discharge home when recovery parameters are met. 2. Follow up biopsy specimen results. 3. High fiber diet. 4. Continue current medications. 5. Recall colonoscopy in 2-3 years. TRANSINT:[id number] Voice Confirmation ID: [id number] DOCUMENT ID: [id number] OPERATIVE REPORT [id number] AIME GALLOWAY,RUSTY Gunter DO at 1013 CC: [id number] DICTATION DATE: 08/29/201406 DEVELOPMENT OFFICER: 08/29/20 2300 [facility] 08/29/20 [place] [id number] [place] [id number]
== END 2020-08-29 14:58 | disposition home or self-care (01) ==
LOC: D.OPS 12:01
PROVIDERS: Anesthesiology; ATTEND Internal Medicine Gastroenterology
DX: Z12.11 Encounter for screening for malignant neoplasm of colon (principal); Z86.010 Personal history of colon polyps; Z80.0 Family history of malignant neoplasm of digestive organs; K63.5 Polyp of colon; K57.30 Diverticulosis of large intestine without perforation or abscess without bleeding; K64.0 First degree hemorrhoids; K92.1 Melena

== ENCOUNTER → 2021-02-23 10:34 | Outpatient (CLI) | payer MEDICAID ==
[2020-10-24 17:34] VITALS: BMI 42.5
[~2021-02-23 10:34] MED LIST changes: +ASPIRIN EC81 MG PO; +GLIPIZIDE10 MG PO; +GLUCOPHAGE1000 MG PO; +SUPER B COMPLE1 EAC1 PO
--- NOTE | 2021-02-24 17:14 | EC ---
PATIENT:AIME GALLOWAY DATE OF SERVICE: 02/23/21 SEX: M MEDICAL RECORD: [id number] DATE OF : 62 LOCATION:[facility] AGE OF PATIENT: 60 ADMISSION DATE: 02/23/21 REFERRING PHYSICIAN: INTERPRETING PHYSICIAN: HERON CHENG MD ECHOCARDIOGRAM REPORT ECHO CHARGES 4 ECHO COMPLETE Date: 02/23/21 CLINICAL DIAGNOSIS: CARDIOMYOPATHY/ REASSESS EF ECHOCARDIOGRAPHIC MEASUREMENTS (adult normal given) AC root (d.<3.7cm) 3.6 cm LV Septum d (<1.2 cm> 1.4 cm Valve Excursion 1.6 cm LV Septum (systole) 1.7 cm Left Atria (s.<4.0cm> 3.9 cm LVPW d(<1.2cm) 1.7 cm RV (d.<2.3cm) 3.8 cm LVPW (sytole) 1.8 cm LV diastole(<5.6CM) 4.5 cm MV E-F(>70mm/sec) cm LV systole 3.1 cm LVOT Diameter 1.8 cm MV exc.(>10mm) 1.6 cm Est.ejection fraction (50-75%) % DOPPLER: LVIT cm/sec A 109.0cm/sec E 97.0 cm/sec LA cm/sec RVSP 18 mmHg LVOT 113 cm/sec AOP1/2T m/s Asc. Ao 146 cm/sec RVOT 102 cm/sec RA cm/sec PA 131 cm/sec AV Gradient Peak 8.51 mmHg AV Mean 4.69 mmHg AV Area 2.1 cm MV Gradient Peak 7.23 mmHg MV Mean 2.96 mmHg MV Area cm COMMENTS: Production Cost Estimator: 2 CASSIE HILTON Dietetics Director: 3 Dr. Alejandra TAPE# PACS Pericardial Effusion N DATE OF SERVICE: Adequate 2D, color-flow imaging, spectral Doppler, and M-Mode FINDINGS: LVH is present. LV internal dimensions are normal. Wall motion is normal. EF is greater than or equal to 55%. Aortic valve is tricuspid. No evidence of stenosis by Doppler interrogation. Left atrium is normal at 3.9 cm. Mitral valve shows no prolapse. Trace MR. Right side is grossly normal. Trace TR. ECHOCARDIOGRAM REPORT [id number] AIME GALLOWAY TRANSINT:[id number] Voice Confirmation ID: [id number] DOCUMENT ID: [id number] HERON CHENG MD at 1714 CC: [id number] DICTATION DATE: 02/24/21937 ROLL TRUCKER: 02/24/21 1320 DEP CLI 02/23/21 [place] [id number] [place] [id number]
== END | disposition home or self-care (01) ==
LOC: D.HCCECHO 10:30
PROVIDERS: ATTEND Internal Medicine Interventional Cardiology
DX: I42.9 Cardiomyopathy, unspecified (principal)